=== PATIENT | female | born 1970 | race Caucasian/White ===

== ENCOUNTER 2019-02-08 04:59 | Emergency (ER) | payer BC ==
[~2019-02-08] VITALS: Ht 162.6 cm; Wt 80.4 kg
[2019-02-08 05:05] VITALS: Ht 162.6 cm; Wt 80.4 kg
[2019-02-08 05:40] LABS: BASOPHIL % 0.5 % (0-2); PLATELET COUNT 309 x10^3mcL (130-400); RED CELL DISTRIBUTION WIDTH 13.6 % (11.5-14.5)
[2019-02-08 05:59] LABS: CALCIUM 8.9 mg/dL (8.5-10.1); CARBON DIOXIDE 26.4 mmol/L (21-32); CHLORIDE SERUM 105 mmol/L (98-107); CREATININE SERUM 0.9 mg/dL (0.6-1.0); GFR1 > 60 mL/min; GLUCOSE SERUM 104 mg/dL (74-106); POTASSIUM SERUM 3.8 mmol/L (3.5-5.1); SODIUM SERUM 140 mmol/L (136-145)
[2019-02-08 06:03] LABS: ALBUMIN 3.6 g/dL (3.4-5.0); ALKALINE PHOSPHATASE 99 U/L (46-116); ALT/SGPT 33 U/L (14-59); AST/SGOT 22 U/L (15-37); TOTAL PROTEIN, SERUM 7.6 g/dL (6.4-8.2)
[2019-02-08 06:13] LABS: T3 TOTAL 1.01 ng/mL
[2019-02-08 06:17] LABS: FREE T4 1.02 ng/dL (0.76-1.46); T4(THYROXINE) 5.8 ug/dL (4.7-13.3)
[2019-02-08 07:33] VITALS: BP 124/55
== END 2019-02-08 08:11 | disposition home or self-care (01) ==
LOC: ED 04:59
PROVIDERS: Emergency Medicine
DX: J02.9 Acute pharyngitis, unspecified (principal)
CPT/HCPCS: 84439; J1885; J7030; Q9967

== ENCOUNTER 2019-07-30 03:48 | Emergency (ER) | payer BC ==
[~2019-07-30] VITALS: Ht 162.6 cm; Wt 78.5 kg
[2019-07-30 04:01] VITALS: Ht 162.6 cm; Wt 78.5 kg
[2019-07-30 05:45] LABS: CALCIUM 9.2 mg/dL (8.5-10.1); CARBON DIOXIDE 27.3 mmol/L (21-32); CHLORIDE SERUM 105 mmol/L (98-107); CREATININE SERUM 0.9 mg/dL (0.6-1.0); GFR1 > 60 mL/min; GLUCOSE SERUM 93 mg/dL (74-106); POTASSIUM SERUM 4.8 mmol/L (3.5-5.1); SODIUM SERUM 141 mmol/L (136-145)
[2019-07-30 05:47] LABS: BASOPHIL % 0.7 % (0-2); PLATELET COUNT 318 x10^3mcL (130-400); RED CELL DISTRIBUTION WIDTH 13.5 % (11.5-14.5)
[2019-07-30 05:50] LABS: ALKALINE PHOSPHATASE 74 U/L (46-116); ALT/SGPT 38 U/L (14-59); AST/SGOT 25 U/L (15-37); BILIRUBIN TOTAL 0.71 mg/dL (0.20-1.00); TOTAL PROTEIN, SERUM 7.7 g/dL (6.4-8.2)
[2019-07-30 05:52] LABS: ALBUMIN 3.3 g/dL (3.4-5.0)
[2019-07-30 06:28] VITALS: BP 109/34
== END 2019-07-30 06:28 | disposition home or self-care (01) ==
LOC: ED 03:48
PROVIDERS: Emergency Medicine
DX: J20.9 Acute bronchitis, unspecified (principal)
CPT/HCPCS: 36415; 83880; Q0092

== ENCOUNTER 2020-03-30 10:27 | Inpatient (IN) | payer BC ==
[~2020-03-30] VITALS: Ht 162.6 cm; Wt 84.1 kg
[2020-03-30 10:34] VITALS: Ht 162.6 cm; Wt 84.1 kg
[2020-03-30 11:27] LABS: BASOPHIL % 0.4 % (0-2); PLATELET COUNT 352 x10^3mcL (130-400); RED CELL DISTRIBUTION WIDTH 13.9 % (11.5-14.5)
[2020-03-30 11:32] LABS: ALBUMIN 3.9 g/dL (3.4-5.0); ALKALINE PHOSPHATASE 79 U/L (46-116); ALT/SGPT 28 U/L (14-59); AST/SGOT 16 U/L (15-37); BILIRUBIN TOTAL 0.7 mg/dL (0.20-1.00); CARBON DIOXIDE 29.6 mmol/L (21-32); CHLORIDE SERUM 103 mmol/L (98-107); GFR1 > 60 mL/min; GLUCOSE SERUM 114 mg/dL (74-106); LIPASE 107 IU/L (73-393); POTASSIUM SERUM 4.6 mmol/L (3.5-5.1); SODIUM SERUM 140 mmol/L (136-145); TOTAL PROTEIN, SERUM 8.2 g/dL (6.4-8.2)
[2020-03-30 11:38] LABS: CALCIUM 9.5 mg/dL (8.5-10.1)
[2020-03-30 12:07] LABS: microscopic required? NO
[2020-03-30 13:20] LABS: urine erythrocyte NEGATIVE (NEGATIVE)
[2020-03-30 22:15] VITALS: BP 112/64
[2020-03-31 05:40] VITALS: BP 107/55
[2020-03-31 07:17] LABS: BASOPHIL % 0.3 % (0-2); PLATELET COUNT 331 x10^3mcL (130-400)
[2020-03-31 07:20] LABS: CALCIUM 8.2 mg/dL (8.5-10.1); CARBON DIOXIDE 26.7 mmol/L (21-32); CHLORIDE SERUM 102 mmol/L (98-107); CREATININE SERUM 0.9 mg/dL (0.6-1.0); GFR1 > 60 mL/min; GLUCOSE SERUM 118 mg/dL (74-106); MAGNESIUM 2.1 mg/dL (1.8-2.4); PHOSPHOROUS 3.9 mg/dL (2.5-4.9); POTASSIUM SERUM 3.7 mmol/L (3.5-5.1); SODIUM SERUM 138 mmol/L (136-145)
[2020-03-31 08:36] VITALS: BP 127/61
[2020-03-31 12:11] VITALS: BP 127/59
[2020-03-31 16:06] VITALS: BP 135/68
[2020-03-31 21:07] VITALS: BP 121/55
[2020-04-01 01:12] LABS: AMPHETAMINE QUAL UR NONE DETECTED (See below)
[2020-04-01 05:18] VITALS: BP 117/54
[2020-04-01 07:00] LABS: BASOPHIL % 0.2 % (0-2); PLATELET COUNT 322 x10^3mcL (130-400); RED CELL DISTRIBUTION WIDTH 13.9 % (11.5-14.5)
[2020-04-01 07:28] LABS: CALCIUM 8.8 mg/dL (8.5-10.1); CARBON DIOXIDE 27.9 mmol/L (21-32); CHLORIDE SERUM 104 mmol/L (98-107); CREATININE SERUM 0.8 mg/dL (0.6-1.0); GFR1 > 60 mL/min; GLUCOSE SERUM 74 mg/dL (74-106); MAGNESIUM 2.1 mg/dL (1.8-2.4); PHOSPHOROUS 2.4 mg/dL (2.5-4.9); POTASSIUM SERUM 4.3 mmol/L (3.5-5.1); SODIUM SERUM 138 mmol/L (136-145)
[2020-04-01 07:35] VITALS: BP 110/52
[2020-04-01 13:56] VITALS: BP 120/48
[2020-04-01 16:47] VITALS: BP 121/55
[2020-04-01 20:45] VITALS: BP 120/51
[2020-04-02 05:45] VITALS: BP 106/44
[2020-04-02 08:00] VITALS: BP 118/55
[2020-04-02] MEDS ORDERED: ELA25 PO (10:26)
[2020-04-02 12:15] VITALS: BP 112/53
[2020-04-02 15:35] VITALS: BP 112/53
== END 2020-04-02 17:19 | disposition home or self-care (01) | DRG 392 ==
LOC: ED 10:27 → MU 13:34
PROVIDERS: Emergency Medicine; Internal Medicine; ADMIT Family Medicine; ATTEND Family Medicine
DX: K52.9 Noninfective gastroenteritis and colitis, unspecified (principal); Z90.710 Acquired absence of both cervix and uterus
CPT/HCPCS: 83880; G0378; J0696; J1885; J1956; J2270; J2405; J3490; J7030; J7060; Q0092; Q9967

== ENCOUNTER 2020-11-20 08:24 | Emergency (ER) | payer BC ==
[~2020-11-20] VITALS: Ht 162.6 cm; Wt 81.6 kg
[~2020-11-20 08:24] MED LIST: ELA25 PO
[2020-11-20 08:25] VITALS: Ht 162.6 cm; Wt 81.6 kg
[2020-11-20 09:13] LABS: BASOPHIL % 1.3 % (0.2-1.3); PLATELET COUNT 351 x10^3mcL (179-408); RED CELL DISTRIBUTION WIDTH 14.1 % (12.3-17.7)
[2020-11-20 09:37] LABS: CALCIUM 8.9 mg/dL (8.5-10.1); CARBON DIOXIDE 25.5 mmol/L (21-32); CHLORIDE SERUM 104 mmol/L (98-107); CREATININE SERUM 0.8 mg/dL (0.6-1.0); GFR1 > 60 mL/min; GLUCOSE SERUM 113 mg/dL (74-106); POTASSIUM SERUM 3.7 mmol/L (3.5-5.1); SODIUM SERUM 141 mmol/L (136-145)
[2020-11-20 10:48] VITALS: BP 117/62
== END 2020-11-20 10:48 | disposition home or self-care (01) ==
LOC: ED 08:24
PROVIDERS: Emergency Medicine
DX: R04.0 Epistaxis (principal)

== ENCOUNTER 2020-11-23 06:04 | Emergency (ER) | payer BC ==
[~2020-11-23] VITALS: Ht 162.6 cm; Wt 80.7 kg
[2020-11-23 06:19] VITALS: BP 142/94; Ht 162.6 cm; Wt 80.7 kg
== END 2020-11-23 07:29 | disposition home or self-care (01) ==
LOC: ED 06:04
DX: R04.0 Epistaxis (principal)